=== PATIENT | female | born 1990 | race Hispanic/Latino ===

== ENCOUNTER 2019-02-03 17:19 | Emergency (ER) | payer OTHER ==
[2019-02-03 17:47] LABS: RAPID GROUP A STREP NEGATIVE (NEGATIVE)
== END 2019-02-03 18:09 | disposition home or self-care (01) ==
LOC: EDH 17:19
DX: J03.90 Acute tonsillitis, unspecified (principal)
CPT/HCPCS: 81025; 87804; 87880

== ENCOUNTER 2024-10-05 23:55 | Emergency (ER) | payer OTHER ==
[~2024-10-05] VITALS: Ht 162.6 cm; Wt 81.6 kg
[~2024-10-05 23:55] MED LIST: AMOX500C2 PO
--- NOTE | 2024-10-06 00:13 | NUR ---
PATIENT BROUGHT TO ED 18
[2024-10-06] MEDS: PANTOPrazole 40 MG/VIAL IVP ONE (00:41)
[2024-10-06] MEDS: ondanSETRON 4MG INJ IVP ONE (00:42)
[2024-10-06 00:43] LABS: BASOPHILS # (AUTO) 0.06 K/uL (0.00-0.20); BASOPHILS % (AUTO) 0.5 % (0.0-5.0); EOSINOPHILS % (AUTO) 1.7 % (0.0-8.0); HEMATOCRIT 32.8 % (36-48); IMMATURE GRANULOCYTE ABSOLUTE 0.06 K/uL (0-1); LYMPHOCYTES # (AUTO) 2.3 K/uL (1.0-4.8); MEAN CORPUSCULAR HEMOGLOBIN 28.9 pg (27.0-33.0); MEAN CORPUSCULAR HGB CONC 34.8 g/dL (32.0-36.0); MEAN CORPUSCULAR VOLUME 83.2 fL (79-99); MONOCYTES # (AUTO) 0.7 K/uL (0.1-1.0); MONOCYTES % (AUTO) 5.7 % (3.0-13.0); NEUTROPHILS # (AUTO) 8.8 K/uL (1.8-7.7); NEUTROPHILS % (AUTO) 72.6 % (40.0-77.0); PLATELET COUNT (AUTO) 130 K/uL (130-400); RED BLOOD CELL COUNT(AUTO) 3.94 MIL/uL (4.00-5.50); RED CELL DISTRIBUTION WIDTH 13.1 % (11.0-15.5); WHITE BLOOD COUNT (AUTO) 12.1 K/uL (4.8-10.8)
[2024-10-06] MEDS: 0.9%NACL 1000ML 1,000 ML IV ONE (00:49)
[2024-10-06 00:53] LABS: POTASSIUM 3.3 mmol/L (3.5-5.1)
--- NOTE | 2024-10-06 01:02 | ERN ---
ED Note History of Present Illness Stated Complaint: VOMITING AFTER EATING THC GUMMY Chief Complaint: Nausea,Vomiting,Diarrhea Time Seen by MD: 23:57 Time Seen by Midlevel: 23:57 Dictation: The patient is a 34-year-old female with no past medical history who presents to the emergency department with complaints of nausea nonbloody vomiting onset 2 hours ago after taking THC gummy of 1000mg for recreational purposes. Patient denies any abdominal pain, constipation or diarrhea. No other complaints report ed. Allergies: Coded Allergies: No Known Drug Allergies (Unverified Allergy, Unknown, 06/04/24) Home Meds Active Scripts Ondansetron (Ondansetron Odt) 4 Mg Tab.rapdis, 4 MG PO Q6HPRN PRN for nausea, #16 TAB 0 Refills Prov:ALEAH CARLSON [facility] 10/06/24 Nitrofurantoin Monohyd/M-Cryst (Macrobid 100 mg Capsule) 100 Mg Capsule, 1 CAP PO BID for 5 Days, #10 CAP 0 Refills Prov:ALEAH CARLSON [facility] 10/06/24 Amoxicillin (Amoxicillin) 500 Mg Capsule, 500 MG PO TID for 10 Days, #30 CAP 0 Refills Prov:KENYON OLSEN MD 06/08/24 Past Medical History Past Medical History: No Pertinent History Surgical History: Social History: Negative, Lives with family : 3 Para: 3 Aborts: 0 RN Note Reviewed/Agreed w/PFSH: Yes Review of System Dictation Constitutional: Negative for fever,chills, and weight loss Eyes: Negative for injury, pain,redness, and discharge ENT: Negative for injury,pain or swelling Cardiovascular: Negative for chest pain, palpitations, and edema Respiratory: Negative for shortness of breath, cough, and wheezing, Abdomen/GI: Negative for abdominal pain diarrhea, and constipation positive for, nausea, vomiting, Back: Negative for injury and pain : Negative for injury, bleeding and discharge MS/Extremity: Negative for injury and deformity Skin: Negative for rash, and discoloration Neuro: Negative for headache, weakness, numbness, tingling, and seizure Psych: Negative for suicide ideation, homicidal ideation, and hallucinations Initial Vital Sign VS Vital Signs Date Time Temp Pulse Resp B/P (MAP) Pulse Ox O2 Delivery O2 Flow Rate FiO2 11/27/24 23:56 98.1 148 20 145/93 100 Room Air 0 10/06/24 01:12 21 Physical Exam Dictation General: awake, drowsy, NAD Head/Face: Normocephalic, atraumatic Eyes: PERRL, EOMI, vision at baseline ENT: oral cavity clear, TMs clear, no signs of infection Neck: Trachea midline, supple, no nuchal rigidity Cardiovascular: RRR, normal S1/S2, No MRGs, no JVD Respiratory: CTAB, no respiratory distress, No rales or wheezes Abdomen: Soft, non-tender, non-distended, normal bowel sounds, no guarding or rebound. Skin: Warm, dry, normal turgor, no rash MS/Extremity: Pulses equal, no cyanosis, neurovascular intact, FROM Neuro: COAx4, GCS 15, strength 5/5, CN 2-12 intact, normal cerebellar exam, normal gait, Psych: Normal behavior, mood, and affect normal Results (Laboratory/Radiology) Laboratory/Radiology Laboratory Tests Test 10/06/24 00:37 10/06/24 01:09 White Blood Count 12.1 K/uL (4.8-10.8) H Red Blood Count 3.94 MIL/uL (4.00-5.50) L Hemoglobin 11.4 g/dL (12.0-16.0) L Hematocrit 32.8 % (36-48) L Mean Corpuscular Volume 83.2 fL (79-99) Mean Corpuscular Hemoglobin 28.9 pg (27.0-33.0) Mean Corpuscular Hemoglobin Concent 34.8 g/dL (32.0-36.0) Red Cell Distribution Width 13.1 % (11.0-15.5) Platelet Count 130 K/uL (130-400) Mean Platelet Volume 10.9 fL (7.5-10.5) H Immature Granulocyte % (Auto) 0.5 % (0-1) Neutrophils (%) (Auto) 72.6 % (40.0-77.0) Lymphocytes (%) (Auto) 19.0 % (21.0-51.0) L Monocytes (%) (Auto) 5.7 % (3.0-13.0) Eosinophils (%) (Auto) 1.7 % (0.0-8.0) Basophils (%) (Auto) 0.5 % (0.0-5.0) Neutrophils # (Auto) 8.8 K/uL (1.8-7.7) H Lymphocytes # (Auto) 2.3 K/uL (1.0-4.8) Monocytes # (Auto) 0.7 K/uL (0.1-1.0) Eosinophils # (Auto) 0.20 K/uL (0.00-0.70) Basophils # (Auto) 0.06 K/uL (0.00-0.20) Absolute Immature Granulocyte (auto 0.06 K/uL (0-1) Nucleated Red Blood Cells 0.0 % (0.0-0.19) Sodium Level 132 mmol/L (136-145) L Potassium Level 3.3 mmol/L (3.5-5.1) L Chloride Level 99 mmol/L (101-111) L Carbon Dioxide Level 23 mmol/L (21-32) Blood Urea Nitrogen 11 mg/dL (7-18) Creatinine 1.0 mg/dL (0.5-1.0) Glomerular Filtration Rate Calc 75 mL/min (>90) Random Glucose 188 mg/dL (70-105) H Total Calcium 8.0 mg/dL (8.5-10.1) L Troponin I High Sensitivity < 4 ng/L (4-50) L Serum Test, Qualitative NEGATIVE (NEGATIVE) Urine Color YELLOW (YELLOW) Urine Appearance TURBID (CLEAR) Urine pH 5.5 (5.0-8.0) Urine Specific [place] 1.018 (1.001-1.031) Urine Protein 20 mg/dL (NEGATIVE) H Urine Glucose (UA) 30 mg/dL (NEGATIVE) H Urine Ketones NEGATIVE mg/dL (NEGATIVE) Urine Occult Blood SMALL (NEGATIVE) H Urine Nitrate NEGATIVE (NEGATIVE) Urine Bilirubin NEGATIVE mg/dL (NEGATIVE) Urine Urobilinogen 0.2 mg/dL (0.2-1.0) Urine Leukocyte Esterase 500 Reina/uL (NEGATIVE) H Urine RBC 51-100 /HPF (0-1) H Urine WBC 51-100 /HPF (0-1) H Urine Squamous Epithelial Cells MANY /HPF (0-2) Urine Amorphous Crystals (Auto) RARE /LPF (None Seen) Urine Bacteria MANY /HPF (None Seen) Urine Yeast MOD /HPF (None Seen) Urine Opiates Screen NEGATIVE (NEGATIVE) Urine Barbiturates Screen NEGATIVE (NEGATIVE) Urine Phencyclidine Screen NEGATIVE (NEGATIVE) Urine Amphetamines Screen NEGATIVE (NEGATIVE) Urine Benzodiazepines Screen NEGATIVE (NEGATIVE) Urine Cocaine Screen NEGATIVE (NEGATIVE) Urine Marijuana (THC) Screen POSITIVE (NEGATIVE) H Labs Reviewed?: Yes EKG: (+) rhythm (Sinus tachycardia), (+) NV (165), (+) QRS (34) EKG Comment: EKG 10/06/2024 0109 ventricular rate 113, regular rate and rhythm, normal sinus rhythm, no STEMI ED Course ED Course Orders Procedure Category Date Status Time Cbc With Differential LAB 10/06/24 Complete 00:20 Urinalysis Profile LAB 10/06/24 Complete 00:20 0.9%Nacl 1000ml (Ns PHA 10/06/24 Complete 1000ml) 00:30 Ondansetron 4mg Inj PHA 10/06/24 Complete (Zofran 4mg Inj) 00:30 Basic Metabolic Panel LAB 10/06/24 Complete 00:20 Pantoprazole 40mg Inj PHA 10/06/24 Complete (Protonix 40mg Inj 00:30 Testing, LAB 10/06/24 Complete Serum Hcg 00:20 12 Lead Ekg Tracing- EKG 10/06/24 Complete Technical 00:51 Drug Screen Urine LAB 10/06/24 Complete 00:51 Troponin I High LAB 10/06/24 Complete Sensitivity 00:51 Potassium Chloride PHA 10/06/24 Complete 10meq/100ml ([place] 02:00 Culture Urine ABDULAZIZ 10/06/24 In Process 01:41 Ceftriaxone 1g Vial PHA 10/06/24 Complete (Rocephine 1g Inj) 02:00 Ns-20 Meq Kcl 1000ml PHA 10/06/24 Complete (Ns-20 Meq Kcl 1000 02:00 Ns-20 Meq Kcl 1000ml PHA 10/06/24 Complete (Ns-20 Meq Kcl 1000 02:00 Current Medications Medications (Trade) Dose Ordered Sig/Amada Route PRN Reason Start Time Stop Time Status Last Admin Dose Admin Ceftriaxone Sodium (ROCEphine 1G INJ) 1 gm ONCE ONCE IVPB 10/06/24 02:00 10/06/24 02:01 DC 10/06/24 02:28 Ondansetron HCl (zoFRAN 4MG INJ) 4 mg ONCE ONCE IVP 10/06/24 00:30 10/06/24 00:31 DC 10/06/24 00:42 Pantoprazole Sodium (PROTonix 40MG INJ) 40 mg ONCE ONCE IVP 10/06/24 00:30 10/06/24 00:31 DC 10/06/24 00:41 Potassium Chloride/Sodium Chloride 1,000 ml @ 500 mls/hr Q2H IV 10/06/24 02:00 10/06/24 01:59 DC Potassium Chloride/Sodium Chloride 1,000 ml @ 500 mls/hr Q2H ONCE IV 10/06/24 02:00 10/06/24 03:59 DC 10/06/24 02:22 Potassium Chloride 100 ml @ 100 mls/hr ONCE ONCE IV 10/06/24 02:00 10/06/24 02:59 DC Sodium Chloride 1,000 ml @ 0 mls/hr ONCE ONCE IV 10/06/24 00:30 10/06/24 00:31 DC 10/06/24 00:49 Vital Signs Date Time Temp Pulse Resp B/P (MAP) Pulse Ox O2 Delivery O2 Flow Rate FiO2 10/06/24 04:29 98.4 98 20 111/68 96 Room Air* 0 21 10/06/24 03:05 102 19 126/70 97 Room Air* 0 21 10/06/24 01:12 110 18 126/69 95 Room Air* 0 10/05/24 23:56 98.1 148 20 145/93 100 Room Air 0 Medical Decision Making MDM MDM: The patient is a 34-year-old female with no past medical history who presents to the emergency department with complaints of nausea nonbloody vomiting onset 2 hours ago after taking THC gummy of 1000mg for recreational purposes. Patient denies any abdominal pain, constipation or diarrhea. No other complaints reported CBC showed mild leukocytosis, no anemia, chemistry showed mild hyponatremia, hypochloremia, patient given 2 L of fluids in ER, hypokalemia, potassium was replaced, negative troponin, glucose of 180, urinalysis with positive leukocyte esterase, patient treated with Rocephin, toxicology positive for THC. Patient reports feeling better, has not vomited. Patient less drowsy and ambulatory. Patient in no acute distress, nontender after will be discharged to follow up with PCP. Differential diagnosis: Dehydration, THC intoxication, electrolyte imbalance, gastroenteritis Need for hospitalization: Patient does not meet criteria for hospitalization. Need for emergency major/minor surgery: No There are no social concerns with this patient. DX & DISP Disposition: Discharge Departure Impression: Primary Impression: Mild tetrahydrocannabinol (THC) abuse Additional Impressions: Nausea and vomiting, Leukocytosis, Anemia, Hyponatremia, Hypokalemia, Hypochloremia, Mild dehydration, UTI (urinary tract infection) Condition: Stable Scripts Ondansetron (Ondansetron Odt) 4 Mg Tab.rapdis 4 MG PO Q6HPRN PRN for nausea, #16 TAB 0 Refills Prov: ALEAH CARLSON 10/06/24 Nitrofurantoin Monohyd/M-Cryst (Macrobid 100 mg Capsule) 100 Mg Capsule 1 CAP PO BID for 5 Days, #10 CAP 0 Refills Prov: ALEAH CARLSON 10/06/24 Additional Instructions: Please stop using THC, this is what is causing your symptoms. Take antibiotics as prescribe. Continue oral hydration at home as tolerated. If symptoms worsen please return to ER. Referrals: SELF,REFERRAL (PCP) Time of Disposition: 02:56 I have reviewed the case, and I agree with, Diagnosis and Plan ATTESTATION BY PHYSICIAN I PERFORMED THE SUBSTANTIVE PORTION OF THE VISIT. I HAVE REVIEWED AND PERSONALLY MADE AND APPROVED THE MANAGEMENT PLAN THAT IS DOCUMENTED IN THE NOTE BY MYSELF FOR THE A PP. I ACKNOWLEDGED FOR RESPONSIBILITY FOR THE PATIENT'S MANAGEMENT PLAN. ALEAH CARLSON Oct 06, 2024 01:02 GEO ZALDIVAR MD Oct 06, 2024 05:23
[2024-10-06 01:33] LABS: APPEARANCE,URINE TURBID (CLEAR); BILIRUBIN,URINE NEGATIVE (NEGATIVE); COLOR,URINE YELLOW (YELLOW); GLUCOSE, URINE (UA) 30 mg/dL (NEGATIVE); KETONES,URINE NEGATIVE (NEGATIVE); LEUKOCYTE ESTERASE ,URINE 500 Leu/uL (NEGATIVE); NITRATE,URINE NEGATIVE (NEGATIVE); OCCULT BLOOD,URINE SMALL (NEGATIVE); PH,URINE 5.5 (5.0-8.0); PROTEIN,URINE 20 mg/dL (NEGATIVE); UROBILINOGEN,URINE 0.2 mg/dL (0.2-1.0)
[2024-10-06 01:40] LABS: ADD UA MICROSCOPIC YES
[2024-10-06 01:41] LABS: AMPHET/METH SCREEN,URINE NEGATIVE (NEGATIVE); BARBITURATE SCREEN, URINE NEGATIVE (NEGATIVE); BENZODIAZEPINES SCREEN,URINE NEGATIVE (NEGATIVE); CANNABINOID SCREEN,URINE POSITIVE (NEGATIVE); COCAINE SCREEN,URINE NEGATIVE (NEGATIVE); OPIATE SCREEN,URINE NEGATIVE (NEGATIVE); PHENCYCLIDINE SCREEN,URINE NEGATIVE (NEGATIVE)
[2024-10-06 01:43] LABS: BACTERIA,URINE MANY /HPF (None Seen); MUCUS,URINE RARE LPF (None Seen); RBC,URINE 51-100 /HPF (0-1); SQUAMOUS EPITHELIAL CELL,UR MANY /HPF (0-2); WBC,URINE 51-100 /HPF (0-1); YEAST,URINE BUDDING MOD /HPF (None Seen)
[2024-10-06] MEDS: PoTASSium chloRIDE 10MEQ/100ML 100 ML IV ONE (01:50)
[2024-10-06] MEDS ORDERED: NS-20 MEQ KCL 1000ML 1,000 ML IV SCH (02:00)
[2024-10-06] MEDS: NS-20 MEQ KCL 1000ML 1,000 ML IV ONE (02:22)
[2024-10-06] MEDS: cefTRIAXone 1G VIAL IVPB ONE (02:28)
[2024-10-06] MEDS ORDERED: NITR100C4 PO (02:57)
[2024-10-06] MEDS ORDERED: ONDA-243 PO (02:57)
[2024-10-06 04:29] VITALS: BP 111/68; PULSE 98; RESP 20; TEMP 98.4; O2SAT 96
--- NOTE | 2024-10-06 05:21 | EKG ---
[facility] Test Date: 2024-10-06 Test Time: 01:09:06 Pat Name: JOHN ROSALES Department: [facility] Room: Gender: F Edging Machine Catcher: [id number] [phone] 1990 Requested By: ALEAH CARLSON Order Number: [id number] Reading MD: Julio Cesar Jordan Measurements Intervals [place] Rate: 113 P: 35 [place]: 165 QRS: 34 QRSD: 87 T: 5 QT: 348 QTc: 477 Interpretive Statements Sinus tachycardia No previous ECG available for comparison Electronically Signed On 10-06-2024 20:46:50 RN LABOR DELIVERY by Julio Cesar Jordan Please click the below link to view image of tracing.
== END 2024-10-06 04:39 | disposition home or self-care (01) ==
LOC: EDH 23:55
DX: F12.10 Cannabis abuse, uncomplicated (principal); R11.2 Nausea with vomiting, unspecified; D72.829 Elevated white blood cell count, unspecified; D64.9 Anemia, unspecified; E86.0 Dehydration; E87.1 Hypo-osmolality and hyponatremia; E87.6 Hypokalemia; E87.8 Other disorders of electrolyte and fluid balance, not elsewhere classified; N39.0 Urinary tract infection, site not specified
CPT/HCPCS: 99284; 84484; 80048; 80305; 84703; 85025; 87086; 36415; 81001; 96365; 96375; 96366; 96368; 93005; J7030; J0696; J2405; J3480; J2470

== ENCOUNTER 2025-07-22 12:12 | Emergency (ER) | payer OTHER ==
[~2025-07-22] VITALS: Ht 160 cm; Wt 86.2 kg
[~2025-07-22 12:12] MED LIST changes: +NITR100C4 PO; +ONDA-243 PO
--- NOTE | 2025-07-22 12:35 | ERN ---
General Chief Complaint: Lower Extremity Pain/Injury Stated Complaint: LT LEG PAIN Time Seen by MD: 12:14 Source: patient History of Present Illness Initial Comments Patient is a 35-year-old female coming in complaining of left calf pain. Per patient she was bitten yesterday felt a pop in left calf region in his complaining of tenderness to palpation Allergies: Coded Allergies: No Known Drug Allergies (Unverified Allergy, Unknown, 06/04/24) Home Meds Active Scripts Ondansetron (Ondansetron Odt) 4 Mg Tab.rapdis, 4 MG PO Q6HPRN PRN for nausea, #16 TAB 0 Refills Prov:ALEAH CARLSON [facility] 10/06/24 Nitrofurantoin Monohyd/M-Cryst (Macrobid 100 mg Capsule) 100 Mg Capsule, 1 CAP PO BID for 5 Days, #10 CAP 0 Refills Prov:ALEAH CARLSON [facility] 10/06/24 Amoxicillin (Amoxicillin) 500 Mg Capsule, 500 MG PO TID for 10 Days, #30 CAP 0 Refills Prov:KENYON OLSEN MD 06/08/24 Past Medical History Past Medical History: No Pertinent History Past Surgical History: Social History Social History: Negative, Lives with family Female( History) LMP: Jun 30, 2025 : 3 Para: 3 Aborts: 0 ROS Dictation CONSTITUTIONAL: No chills, no fever, no weakness, no diaphoresis, no malaise. HEAD/FACE: No signs of trauma. EENT: No eye pain, no blurred vision, no tearing, no double vision, no ear pain, no ear discharge, no nose pain, no nasal congestion, no throat pain, no throat swelling, no mouth pain. RESPIRATORY: No cough, no orthopnea, no SOB, no stridor, no wheezing. CARDIOVASCULAR: No chest pain, no edema, no palpitations, no syncope. GASTROINTESTINAL/ABDOMINAL: No abdominal pain, no constipation, no diarrhea, no nausea, no vomiting. GENITOURINARY: No abnormal discharge, no dysuria, no frequent urination, no hematuria. No complaints of pain in the genitals. MUSCULOSKELETAL: No back pain, no gout, no joint pain, no joint swelling, mu scle pain, muscle stiffness, no neck pain. INTEGUMENTARY: No change in color, no change in hair/nails, no dryness, no lesion, no lumps, no rash. NEUROLOGICAL/PSYCH: No anxiety, not depressed, no emotional problem, no headache, no numbness, no pre-existing deficit, no history of seizures, no tremors, no weakness. HEMATOLOGIC/LYMPHATIC: Not anemic, no history of blood clots, no apparent bleeding, no bruising, glands not swollen. All Systems Negative, Except as Noted. Physical Exam Physical Exam Dictation VITAL SIGNS: Reviewed. GENERAL APPEARANCE: Alert, oriented x3, no acute distress, obese. HEAD AND FACE: Non-traumatic. EYES: PERRL, pink conjunctivas, eyelid no trauma, anterior chamber clear. EARS: Pinnas intact and no signs of trauma or erythema. Ear canals clear and no discharge. TMs no erythema. NOSE: No discharge, no bleeding. OROPHARYNX: Mouth normal, teeth no caries, tongue pink. Pharynx clear, no erythema. Tonsils no exudates, no abscesses noted. Mucous membrane moist. NECK: Supple, non-tender, no thyromegaly, no masses, no JVD, no bruits. BREAST: Deferred. CHEST: No tenderness, no crepitus, no paradoxical movement, no retractions. LUNGS: Clear, well-ventilated, symmetric, no rales, no wheezing, no rhonchi, no stridor, good breath sounds bilaterally. HEART: Regular rate, regular rhythm, no murmur, no gallops. VASCULAR: No peripheral edema. ABDOMEN: Soft, positive bowel sounds, nondistended, no guarding, nontender, no rebound, no masses no hepatomegaly, no splenomegaly, no Barry's sign, no hernias. RECTAL: Deferred. GENITAL: Deferred. NEUROLOGICAL: Normal speech, gross motor function intact, gross sensory function intact. MUSCULOSKELETAL: Neck nontender, full range of motion, back nontender, full range of motion. EXTREMITIES: Nontender, full range of motion. Left gastrocnemius pain on palpation, SKIN: Color pink, dry, no turgor, no rash, no lacerations, no abrasions, no contusions. LYMPHATICS: Deferred. Results Laboratory and Microbiology Labs Reviewed?: Yes EKG/XRAY/US/CT/MRI Ultrasound Comment Left gastrocnemius ultrasound- congestion possible tear MDM MDM: Differential diagnosis: Gastrocnemius tear, strain, DVT, Rationale: Tests considered and ordered secondary to shared decision making include: Previous outside records reviewed: Old ER visits. Risk of complication and/or morbidity or mortality of patient management: None Medications-Per medication reconciliation Need for hospitalization: Patient does not meet criteria for hospitalization. Need for emergency major/minor surgery: No Patient is a 35-year-old female coming in complaining of left calf pain. Ultrasound disclose congestion possible tear. Long posterior splint was placed I did advised her appropriate follow up with the PCP for ongoing management. ED Course Orders Procedure Category Date Status Time Us Soft Tissue Lower US 07/22/25 Taken Extremity 12:20 Vital Signs Date Time Temp Pulse Resp B/P (MAP) Pulse Ox O2 Delivery O2 Flow Rate FiO2 07/22/25 13:55 97.9 60 18 131/65 99 Room Air* 0 21 07/22/25 12:14 97.9 71 20 136/86 97 DX & DISP Disposition: Discharge Departure Impression: Primary Impression: Gastrocnemius muscle tear Condition: Stable Scripts Naproxen (Naproxen) 500 Mg Tablet 1 TAB PO BID for pain for 7 Days, #14 TAB 0 Refills Prov: GEO ZALDIVAR MD 07/22/25 Additional Instructions: FOLLOW-UP WITH PRIMARY CARE PROVIDER IN 1 TO 2 DAYS. TAKE MEDICATIONS DIRECTED HERE IN THE EMERGENCY ROOM. OKAY TO CONTINUE HOME MEDICATIONS UNLESS OTHERWISE DISCUSSED DURING YOUR VISIT IN THE EMERGENCY ROOM TODAY. RETURN TO YOUR NEAREST EMERGENCY ROOM IF SYMPTOMS WORSEN OR IF THERE IS NO IMPROVEMENT. CALL 911 IF YOU NEED IMMEDIATE ASSISTANCE. TAKE TYLENOL [id number] NEEDED AND IF NO CONTRAINDICATIONS ARE PRESENT. INCREASE ORAL HYDRATION. A WOUND CULTURE OR URINE CULTURE WAS ORDERED HERE IN THE EMERGENCY ROOM DEPARTMENT PLEASE FOLLOW-UP WITH PRIMARY CARE PROVIDER AND ADVISE THEM TO GET REPORTS FROM OUR FACILITY. IF YOU HAD ANY TONI WRAP/SPLINTS THAT WERE APPLIED HERE, PLEASE DO NOT REMOVE THEM UNTIL YOU SEE YOUR PRIMARY CARE OR SPECIALTY. Referrals: Referrals: SELF,REFERRAL (PCP) GABINO HERNANDEZ MD, LUIS A MD Time of Disposition: 14:06 GEO ZALDIVAR MD Jul 22, 2025 12:35
[2025-07-22 13:55] VITALS: BP 131/65; PULSE 60; RESP 18; TEMP 97.9; O2SAT 99
[2025-07-22] MEDS ORDERED: NAPR-1194 PO (14:06)
--- NOTE | 2025-07-23 07:48 | HMCIMG ---
EXAMINATION: SOFT TISSUE ULTRASOUND OF THE LEFT CALF. CLINICAL HISTORY: Left calf pain onset last night. COMPARISON: None provided. TECHNIQUE: Transverse and longitudinal images were obtained. In addition, color Doppler is medically necessary to assess vascularity and blood flow. FINDINGS: There are well-defined collections that measure 1.3 cm in the muscular plane of the anterior calf and 3.5 cm in the muscular plane of the medial calf in craniocaudal, AP, and transverse dimensions respectively. No vascularity. Mid and distal superficial femoral, popliteal, and posterior tibial veins appear normal. IMPRESSION: Features may reflect intramuscular fluid collections. Contrast enhanced MR may be considered. /[place]
== END 2025-07-22 14:48 | disposition home or self-care (01) ==
LOC: EDH 12:12
DX: S86.112A Strain of other muscle(s) and tendon(s) of posterior muscle group at lower leg level, left leg, initial encounter (principal); Z79.899 Other long term (current) drug therapy; Z98.890 Other specified postprocedural states; X58.XXXA Exposure to other specified factors, initial encounter; Y93.89 Activity, other specified; Y92.89 Other specified places as the place of occurrence of the external cause; Y99.8 Other external cause status
CPT/HCPCS: 76882; 99284